=== PATIENT | female | born 1955 | race Caucasian/White ===

== ENCOUNTER 2021-04-04 10:35 | Inpatient (IN) | payer OTHER ==
[2021-04-04] MEDS ORDERED: diazePAM CARPU-JECT 10 MG/2 ML DISP.SYRIN IVPUSH ONE (12:45)
[2021-04-04] MEDS ORDERED: LIDOCAINE 5% TOPICAL PATCH TP ONE (12:49)
[2021-04-04 13:11] LABS: BASO % 1.2 % (0-2.0); EOS % 22.3 % (0-4.5); HEMATOCRIT 39.3 % (32.4-45.2); LYMPH % 16.1 % (8-40); MCH 26.4 pg (25.7-33.7); MCHC 33.1 g/dl (32.0-36.0); MEAN CELL VOLUME 79.9 fl (80-96); MEAN PLT VOLUME 9.1 fl (7.5-11.1); MONO % 7.1 % (3.8-10.2); NEUT % 53.3 % (42.8-82.8); PLATELET COUNT 241 10^3/uL (134-434); RBC 4.91 M/mm3 (3.60-5.2); RDW 14.9 % (11.6-15.6); WHITE BLOOD COUNT 7.6 K/mm3 (4.0-10.0)
[2021-04-04] MEDS ORDERED: diazePAM CARPU-JECT 10 MG/2 ML DISP.SYRIN ONE (13:18)
[2021-04-04] MEDS ORDERED: LIDOCAINE 5% TOPICAL PATCH ONE (13:18)
[2021-04-04 13:27] LABS: ALBUMIN 3.2 g/dl (3.4-5.0); BLOOD UREA NITROGEN 11.2 mg/dL (7-18); CALCIUM 9.1 mg/dL (8.5-10.1)
[2021-04-04 13:28] LABS: MAGNESIUM 1.7 mg/dL (1.8-2.4)
[2021-04-04 13:30] LABS: CREATININE 0.7 mg/dL (0.55-1.3)
[2021-04-04 13:32] LABS: TOT PROT 6.6 g/dl (6.4-8.2)
[2021-04-04] MEDS ORDERED: ACETAMINOPHEN 1000 MG/100 ML VIAL (NON FORMULARY) IVPB ONE (15:09)
[2021-04-04] MEDS ORDERED: ACETAMINOPHEN INJECTION 100 ML IVPB ONE (15:25)
[2021-04-04 15:26] LABS: ANISOCYTOSIS 0; MACROCYTOSIS 0; OVALOCYTE 1+; PLATELET ESTIMATE NORMAL
[2021-04-04] MEDS ORDERED: MAGNESIUM SULFATE IN WATER 2 GM/50 ML IVPB IVPB ONE (16:19)
[2021-04-04] MEDS ORDERED: diazePAM 2 MG TABLET PO PRN (17:48)
[2021-04-04] MEDS: D5-1/2NS+20 MEQ KCL - 20 MEQ/1,000 ML INFUS.BAG IV SCH (19:12)
[2021-04-04] MEDS ORDERED: LIDOCAINE PATCH REMOVAL MC SCH (22:00)
[2021-04-04] MEDS: HEPARIN NA (PORCINE) 5,000 UNITS/ML 1ML VIAL SQ SCH (22:14)
[2021-04-04] MEDS: BACLOFEN 10 MG TABLET (FP) PO SCH (22:14)
[2021-04-05] MEDS ORDERED: PT OWN MED DRAWER 7, Y5N ONE ×3 (05:31→14:05)
[2021-04-05] MEDS: BACLOFEN 10 MG TABLET (FP) PO SCH ×3 (06:27→22:13)
[2021-04-05] MEDS: REPAGLINIDE 2 MG TABLET (FP) PO SCH ×2 (06:34→16:58)
[2021-04-05 10:36] LABS: HEMATOCRIT 39.2 % (32.4-45.2); HEMOGLOBIN 13.1 GM/dL (10.7-15.3); MCH 26.7 pg (25.7-33.7); MCHC 33.4 g/dl (32.0-36.0); MEAN CELL VOLUME 79.9 fl (80-96); MEAN PLT VOLUME 9.2 fl (7.5-11.1); PLATELET COUNT 245 10^3/uL (134-434); RBC 4.91 M/mm3 (3.60-5.2); RDW 15.1 % (11.6-15.6); WHITE BLOOD COUNT 6.8 K/mm3 (4.0-10.0)
[2021-04-05 10:58] LABS: CHOLESTEROL 101 mg/dL (50-200); TRIGLYCERIDES 115 mg/dL (0-150)
[2021-04-05 10:59] LABS: LDL CHOLESTEROL (ONLY SJRH) 44 mg/dL (5-100)
[2021-04-05 11:01] LABS: HDL CHOLESTEROL 37 mg/dL (40-60)
[2021-04-05] MEDS: METOPROLOL TARTRATE 25 MG TABLET (FP) PO SCH ×2 (11:08→22:12)
[2021-04-05] MEDS: PANTOPRAZOLE 20 MG TABLET PO SCH (11:08)
[2021-04-05] MEDS: LISINOPRIL 5 MG TABLET PO SCH (11:08)
[2021-04-05] MEDS: diazePAM 5 MG TABLET PO SCH ×4 (11:08→22:13)
[2021-04-05] MEDS: HEPARIN NA (PORCINE) 5,000 UNITS/ML 1ML VIAL SQ SCH ×2 (11:09→22:13)
[2021-04-05 11:22] LABS: BLOOD UREA NITROGEN 7.6 mg/dL (7-18); CALCIUM 8.8 mg/dL (8.5-10.1)
[2021-04-05 11:23] LABS: ALBUMIN 3.2 g/dl (3.4-5.0); MAGNESIUM 2.2 mg/dL (1.8-2.4)
[2021-04-05 11:26] LABS: CREATININE 0.6 mg/dL (0.55-1.3)
[2021-04-05 11:27] LABS: BILIRUBIN,TOTAL 0.9 mg/dL (0.2-1)
[2021-04-05 11:28] LABS: TOT PROT 6.3 g/dl (6.4-8.2)
[2021-04-05 12:15] LABS: ANISOCYTOSIS 0; HELMET CELLS 0; HOWELL-JOLLY BODIES 0; MACROCYTOSIS 0; OVALOCYTE 0; PLATELET ESTIMATE NORMAL; ROULEAU 0; SICKELED CELLS 0; TARGET CELLS 0; TEAR DROP CELLS 0; TOXIC GRANULATION 0
[2021-04-05] MEDS: D5-1/2NS+20 MEQ KCL - 20 MEQ/1,000 ML INFUS.BAG IV SCH (17:59)
[2021-04-06] MEDS: diazePAM 5 MG TABLET PO SCH ×6 (04:58→21:49)
[2021-04-06] MEDS: BACLOFEN 10 MG TABLET (FP) PO SCH ×3 (06:01→21:43)
[2021-04-06] MEDS: REPAGLINIDE 2 MG TABLET (FP) PO SCH ×2 (06:01→18:11)
[2021-04-06] MEDS: D5-1/2NS+20 MEQ KCL - 20 MEQ/1,000 ML INFUS.BAG IV SCH ×3 (06:35→20:21)
[2021-04-06 08:39] LABS: HEMATOCRIT 36.2 % (32.4-45.2); HEMOGLOBIN 12.1 GM/dL (10.7-15.3); MCH 26.6 pg (25.7-33.7); MCHC 33.4 g/dl (32.0-36.0); MEAN CELL VOLUME 79.8 fl (80-96); MEAN PLT VOLUME 9.1 fl (7.5-11.1); PLATELET COUNT 227 10^3/uL (134-434); RBC 4.54 M/mm3 (3.60-5.2); RDW 15.2 % (11.6-15.6); WHITE BLOOD COUNT 6.8 K/mm3 (4.0-10.0)
[2021-04-06 09:11] LABS: BLOOD UREA NITROGEN 11.3 mg/dL (7-18); CALCIUM 8.4 mg/dL (8.5-10.1)
[2021-04-06 09:14] LABS: CREATININE 0.6 mg/dL (0.55-1.3)
[2021-04-06 09:46] LABS: ANISOCYTOSIS 1+; MACROCYTOSIS 0; OVALOCYTE 1+; PLATELET ESTIMATE NORMAL
[2021-04-06] MEDS: METOPROLOL TARTRATE 25 MG TABLET (FP) PO SCH ×2 (11:05→21:43)
[2021-04-06] MEDS: LISINOPRIL 5 MG TABLET PO SCH (11:05)
[2021-04-06] MEDS: HEPARIN NA (PORCINE) 5,000 UNITS/ML 1ML VIAL SQ SCH ×2 (11:06→21:43)
[2021-04-06] MEDS: PANTOPRAZOLE 20 MG TABLET PO SCH (11:06)
[2021-04-06 15:39] VITALS: BMI 21.1
[2021-04-07] MEDS: diazePAM 5 MG TABLET PO SCH ×6 (01:36→22:31)
[2021-04-07] MEDS: BACLOFEN 10 MG TABLET (FP) PO SCH ×3 (06:15→22:30)
[2021-04-07] MEDS: REPAGLINIDE 2 MG TABLET (FP) PO SCH ×2 (06:29→17:52)
[2021-04-07] MEDS ORDERED: PT OWN MED DRAWER 7, Y5N ONE ×2 (06:34→17:48)
[2021-04-07] MEDS ORDERED: INSULIN SLIDING SCALE (NOVOLOG) 1 VIAL SQ SCH (07:00)
[2021-04-07 09:50] LABS: HEMATOCRIT 37.6 % (32.4-45.2); HEMOGLOBIN 12.4 GM/dL (10.7-15.3); MCH 26.5 pg (25.7-33.7); MCHC 32.9 g/dl (32.0-36.0); MEAN CELL VOLUME 80.4 fl (80-96); MEAN PLT VOLUME 9.2 fl (7.5-11.1); PLATELET COUNT 222 10^3/uL (134-434); RBC 4.67 M/mm3 (3.60-5.2); WHITE BLOOD COUNT 6.4 K/mm3 (4.0-10.0)
[2021-04-07] MEDS: D5-1/2NS+20 MEQ KCL - 20 MEQ/1,000 ML INFUS.BAG IV SCH ×3 (10:14→22:21)
[2021-04-07 10:17] LABS: BLOOD UREA NITROGEN 9.4 mg/dL (7-18); CALCIUM 8.5 mg/dL (8.5-10.1)
[2021-04-07] MEDS: HEPARIN NA (PORCINE) 5,000 UNITS/ML 1ML VIAL SQ SCH ×2 (10:17→22:17)
[2021-04-07] MEDS: METOPROLOL TARTRATE 25 MG TABLET (FP) PO SCH ×2 (10:19→22:30)
[2021-04-07 10:20] LABS: CREATININE 0.7 mg/dL (0.55-1.3)
[2021-04-07] MEDS: LISINOPRIL 5 MG TABLET PO SCH (10:21)
[2021-04-07] MEDS: PANTOPRAZOLE 20 MG TABLET PO SCH (10:29)
[2021-04-07 12:31] LABS: ANISOCYTOSIS 1+; MACROCYTOSIS 0; OVALOCYTE 2+; PLATELET ESTIMATE NORMAL
[2021-04-07] MEDS: INSULIN SLIDING SCALE (NOVOLOG) 1 VIAL SQ SCH (21:45)
[2021-04-08] MEDS: diazePAM 5 MG TABLET PO SCH ×4 (01:10→14:23)
[2021-04-08] MEDS: BACLOFEN 10 MG TABLET (FP) PO SCH ×2 (05:35→14:23)
[2021-04-08] MEDS: REPAGLINIDE 2 MG TABLET (FP) PO SCH (06:28)
[2021-04-08] MEDS: INSULIN SLIDING SCALE (NOVOLOG) 1 VIAL SQ SCH ×2 (06:28→12:37)
[2021-04-08] MEDS: HEPARIN NA (PORCINE) 5,000 UNITS/ML 1ML VIAL SQ SCH (10:50)
[2021-04-08] MEDS: LISINOPRIL 5 MG TABLET PO SCH (10:52)
[2021-04-08] MEDS: METOPROLOL TARTRATE 25 MG TABLET (FP) PO SCH (10:52)
[2021-04-08] MEDS: PANTOPRAZOLE 20 MG TABLET PO SCH (10:53)
[2021-04-08] MEDS ORDERED: ACETAMINOPHEN 325 MG TABLET (FP) PO PRN (11:47)
[2021-04-08] MEDS: D5-1/2NS+20 MEQ KCL - 20 MEQ/1,000 ML INFUS.BAG IV SCH (12:50)
[2021-04-08 15:00] VITALS: BP 137/61; PULSE 70; TEMP 98.4
[2021-04-08] MEDS ORDERED: morphine SULFATE 4 MG/ML VIAL IVPUSH ONE (15:09)
== END 2021-04-08 15:41 | DRG 351 ==
LOC: JER 10:35 → JERBED 12:05 → J5S 20:12 → OBSVTOIN 04-08 12:05
PROVIDERS: ADMIT Family Medicine; ATTEND Family Medicine
DX: M62.838 Other muscle spasm (principal); G25.82 Stiff-man syndrome; E05.90 Thyrotoxicosis, unspecified without thyrotoxic crisis or storm; M54.16 Radiculopathy, lumbar region; M48.00 Spinal stenosis, site unspecified; M41.9 Scoliosis, unspecified; R29.6 Repeated falls; F41.9 Anxiety disorder, unspecified; E11.42 Type 2 diabetes mellitus with diabetic polyneuropathy
CPT/HCPCS: 36415; 71045-TC-FY; 72131-TC; 80048; 80053; 80061; 82550; 82607; 82962; 83036; 83735; 84439; 84443; 84481; 85025; 85651; 86140; 86341; 86618; 93005; 93010; 97116-GP; 97162-GP; 99285-25; C9803; G0378; J0131; J0475; J1644; U0003; U0005